=== PATIENT | female | born 1995 | race Caucasian/White ===

== ENCOUNTER 2018-05-13 07:07 | Emergency (ER) | payer OTHER ==
--- NOTE | 2018-05-13 08:01 | UC ---
Complaint Female HPI - HPI Summary HPI Summary: vaginal discharge with some whitish , brownish discharge, some discomfort, and dysuria, no fever or chills. using oral contraceptives , hx. of previous episode of vaginitis . not had unprotected sexual relations. - History Of Current Complaint Chief Complaint: [facility] Stated Complaint: POSS YEAST INFECTION Time Seen by Provider: 05/13/18 07:53 Hx Obtained From: Patient Hx Last Menstrual Period: 04/15/18 ?: No Onset/Duration: Lasting Days Timing: Constant Severity Initially: Mild Severity Currently: None Pain Intensity: 0 - Allergies/Home Medications Allergies/Adverse Reactions: Allergies Allergy/AdvReac Type Severity Reaction Status Date / Time No Known Allergies Allergy Verified 05/13/18 07:38 Home Medications: Home Medications Norethindrone-Ethinyl Estrad [Nortrel /35 (21)] 1 tab PO DAILY 05/13/18 [ History Confirmed 05/13/18] PMH/Surg Hx/FS Hx/Imm Hx Previously Healthy: Yes - Surgical History Surgical History: Yes Surgery Procedure, Year, and Place: fasciotomy bilateral legs 2014 - Social History Alcohol Use: Occasionally Substance Use Type: None Smoking Status (MU): Never Smoked Tobacco Review of Systems Constitutional: Negative Skin: Negative Eyes: Negative ENT: Negative Respiratory: Negative Cardiovascular: Negative Gastrointestinal: Negative Genitourinary: Negative Motor: Negative Neurovascular: Negative Musculoskeletal: Negative Neurological: Negative Psychological: Negative All Other Systems Reviewed And Are Negative: Yes Physical Exam Triage Information Reviewed: Yes Appearance: Well-Appearing Vital Signs: Initial Vital Signs Temp 36.9 C 05/13/18 07:33 Pulse 64 05/13/18 07:33 Resp 13 05/13/18 07:33 BP 127/74 05/13/18 07:33 Pulse Ox 100 05/13/18 07:33 Vital Signs Reviewed: Yes Eye Exam: Normal Abdominal Exam: Normal Abdomen Description: Positive: Nontender Pelvic Exam: Positive: Other - patient elects not to be examined at this time Complaint Female Dx - Differential Dx/Diagnosis Provider Diagnoses: candidal vaginitis Discharge - Sign-Out/Discharge Documenting (check all that apply): Patient Departure All imaging exams completed and their final reports reviewed: No Studies - Discharge Plan Condition: Stable Disposition: HOME Prescriptions: Fluconazole [Diflucan] 100 mg PO ONCE #1 tablet Patient Education Materials: Vaginitis (ED) Referrals: Rahul Vasquez MD [Primary Care Provider] - - Billing Disposition and Condition Condition: STABLE Disposition: Home
[2018-05-13 08:03] VITALS: BP 127/74
== END 2018-05-13 08:37 | disposition home or self-care (01) ==
LOC: UCCORT 07:07
DX: B37.3 Candidiasis of vulva and vagina (principal)
CPT/HCPCS: 81003; 87086; 87106; 99202; G0463

== ENCOUNTER 2019-05-23 12:25 | Emergency (ER) | payer OTHER ==
[2019-05-23 13:54] VITALS: BP 106/66
--- NOTE | 2019-05-23 14:30 | UC ---
Throat Pain/Nasal Ld HPI - HPI Summary HPI Summary: Chills, fever, cough, sore throat, ear pain x2-3 days. Pt denies sinus pressure and congestion - History of Current Complaint Chief Complaint: UCGeneralIllness Stated Complaint: SORE THROAT Time Seen by Provider: 05/23/19 14:19 Hx Obtained From: Patient Hx Last Menstrual Period: 05/22/19 ?: No Onset/Duration: Sudden Onset, Lasting Days Severity: Moderate Pain Intensity: 4 Associated Signs & Symptoms: Positive: Dysphagia, Sinus Discomfort, Nasal Discharge - Allergies/Home Medications Allergies/Adverse Reactions: Allergies Allergy/AdvReac Type Severity Reaction Status Date / Time No Known Allergies Allergy Verified 05/23/19 13:54 Home Medications: Home Medications Phenylephrine/Dm/Acetaminop/GG [Tylenol Cold-Flu Severe Caplet] 2 tab PO ONCE [History Confirmed 05/23/19] PMH/Surg Hx/FS Hx/Imm Hx Previously Healthy: Yes - Surgical History Surgical History: Yes Surgery Procedure, Year, and Place: fasciotomy bilateral legs 2014 - Family History Known Family History: Positive: Cardiac Disease, Hypertension - Social History Alcohol Use: Occasionally Substance Use Type: None Smoking Status (MU): Never Smoked Tobacco Review of Systems All Other Systems Reviewed And Are Negative: Yes Constitutional: Positive: Fever ENT: Positive: Sore Throat, Ear Ache, Nasal Discharge Respiratory: Positive: Cough Cardiovascular: Positive: Negative Gastrointestinal: Positive: Negative Genitourinary: Positive: Negative Is Patient Immunocompromised?: No Physical Exam Triage Information Reviewed: Yes Appearance: Well-Nourished, Ill-Appearing, Pain Distress Vital Signs: Initial Vital Signs Temp 98.7 F 05/23/19 13:50 Pulse 123 05/23/19 13:50 Resp 18 05/23/19 13:50 BP 106/66 05/23/19 13:50 Pulse Ox 100 05/23/19 13:50 Vital Signs Reviewed: Yes Eye Exam: Normal ENT: Positive: Pharyngeal erythema, TM bulging, Tonsillar swelling, Tonsillar exudate Dental Exam: Normal Neck exam: Normal Respiratory Exam: Normal Respiratory: Positive: Chest non-tender, Lungs clear, Normal breath sounds Cardiovascular: Positive: No Murmur, Pulses Normal, Tachycardia Abdominal Exam: Normal Bowel Sounds: Positive: Present Musculoskeletal Exam: Normal Neurological Exam: Normal Psychological Exam: Normal Skin Exam: Normal Throat Pain/Nasal Course/Dx - Course Course Of Treatment: hx obtained, exam performed ,meds reviewed, rapid strep is positive, treated. - Differential Dx/Diagnosis Differential Diagnosis/HQI/PQRI: Otitis Media, Pharyngitis, Sinusitis, URI Provider Diagnosis: Strep pharyngitis Discharge ED - Sign-Out/Discharge Documenting (check all that apply): Patient Departure All imaging exams completed and their final reports reviewed: No Studies - Discharge Plan Condition: Stable Disposition: HOME Patient Education Materials: Strep Throat (ED) Referrals: Rahul Vasquez MD [Primary Care Provider] - Additional Instructions: 1. take the medication as prescribed. 2. Increase fluids and get rest 3. Ibuprofen and tylenol for pain and fever. - Billing Disposition and Condition Condition: STABLE Disposition: Home
== END 2019-05-23 14:39 | disposition home or self-care (01) ==
LOC: UCCORT 12:25
DX: J02.0 Streptococcal pharyngitis (principal); R09.81 Nasal congestion; R09.89 Other specified symptoms and signs involving the circulatory and respiratory systems
CPT/HCPCS: 87651; 99212; G0463